=== PATIENT | male | born 1985 | race Caucasian/White ===

== ENCOUNTER 2017-03-16 20:58 | Emergency (ER) | payer OTHER ==
[~2017-03-16] VITALS: Ht 180.3 cm; Wt 102.0 kg
[~2017-03-16 20:58] MED LIST: ANAPROX DS550 M1 PO; AUGMENTIN875 MG PO; MOTRIN800 MG PO; NO HOME MEDS; OXYCODONE HCL5 MG PO; VALIUM5 MG PO
[2017-03-16 21:12] VITALS: BP 122/100
[2017-03-16 23:02] LABS: BASOPHIL COUNT 0.1 K/uL (0-0.1); EOSINOPHIL (%) 0.6 % (0-5); EOSINOPHIL COUNT 0.1 K/uL (0-0.3); HEMATOCRIT 44.9 % (38.0-50.0); IMMATURE GRANULOCYTE (%) 0.4 % (0.0-0.7); INSTRUMENT ABS NEUTROPHIL CT 8.1 K/uL; LYMPHOCYTE COUNT 2.1 K/uL (1.0-2.8); MCH 30.2 PG (29.0-34.0); MCHC 34.7 G/DL (30.0-36.0); MEAN PLAT.VOLUME 10.8 uM^3 (9.0-12.4); MONOCYTE (%) 6.1 % (3-12); MONOCYTE COUNT 0.7 K/uL (0-0.8); NEUTROPHIL (%) 73.4 % (45-76); NEUTROPHIL COUNT 8.1 K/uL (1.8-6.4); PLATELET COUNT 240 K/uL (156-360); RBC DIS.WIDTH-CV 12.3 % (11.8-14.6); RBC DIS.WIDTH-SD 39.5 % (39-53); RED BLOOD COUNT 5.16 M/uL (4.00-5.50); WHITE BLOOD COUNT 11.1 K/uL (4.1-10.2)
[2017-03-16 23:20] LABS: CHLORIDE 107 mEq/L (99-109); POTASSIUM 4.3 mEq/L (3.7-5.4); SODIUM 141 mEq/L (136-147)
[2017-03-16 23:22] LABS: GLUCOSE 89 mg/dL (70-99)
[2017-03-16 23:23] LABS: ANION GAP 9 MEQ/L (2-14)
[2017-03-16 23:24] LABS: TOTAL BILIRUBIN 0.6 mg/dL (0.0-1.0)
[2017-03-16 23:26] LABS: ALKALINE PHOSPHATASE 136 IU/L (3-129); GFR ESTIMATE (CALCULATED) > 59 mL/min/
[2017-03-16 23:27] LABS: UREA NITROGEN (BUN) 13 mg/dL (9-23)
[2017-03-16 23:28] LABS: DIRECT BILIRUBIN 0.2 mg/dL (0.0-0.3)
[2017-03-17 11:43] LABS: HPCA INDEX 0.14
[2017-03-17 11:44] LABS: AHBS INDEX 1.12; HEPATITIS B SURFACE ANTIBODY Nonreactive; HIV INDEX 0.06; HIV-1/2 AB/AG COMBO Nonreactive
== END 2017-03-16 22:59 | disposition home or self-care (01) ==
LOC: EME 20:58
PROVIDERS: Physician Assistant
DX: S50.812A Abrasion of left forearm, initial encounter (principal); Z77.21 Contact with and (suspected) exposure to potentially hazardous body fluids; Y04.2XXA Assault by strike against or bumped into by another person, initial encounter; Y92.149 Unspecified place in prison as the place of occurrence of the external cause; Y99.0 Civilian activity done for income or pay
CPT/HCPCS: 80048; 80076; 85025; 86703; 86706; 86803; 99281; 99284